=== PATIENT | male | born 1995 | race Caucasian/White ===

== ENCOUNTER 2018-05-10 15:31 | Emergency (ER) | payer OTHER ==
[~2018-05-10] VITALS: Ht 177.8 cm; Wt 81.8 kg
--- NOTE | 2018-05-10 17:23 | REP ---
RIGHT FOOT, FOUR VIEWS: HISTORY: Injury. Postoperative change is present in the distal tibia and fibula. There is no acute fracture or dislocation. The joint spaces are normal in appearance. IMPRESSION:There is no acute fracture or dislocation. Electronically Signed by Juan Miguel Farrell MD 05/11/2018 08:15 A
[2018-05-10] MEDS ORDERED: KETO10TAB PO (18:23)
[2018-05-10] MEDS ORDERED: KETOROLAC TROMETHAMINE 10 MG TAB PO ONE (18:30)
[2018-05-10 18:34] VITALS: BP 134/82
== END 2018-05-10 18:35 | disposition home or self-care (01) ==
LOC: M ED 15:31
DX: S90.31XA Contusion of right foot, initial encounter (principal); W22.8XXA Striking against or struck by other objects, initial encounter; Y92.139 Unspecified place military base as the place of occurrence of the external cause; Y99.1 Military activity; Z88.5 Allergy status to narcotic agent